=== PATIENT | female | born 1960 | race Caucasian/White ===

== ENCOUNTER → 2017-02-14 | Outpatient (CLI) | payer BC ==
[2017-02-14 14:27] LABS: BILIRUBIN,TOTAL 0.3 MG/DL (0.2-1.0); CARBON DIOXIDE LEVEL 27 MEQ/L (21-32); CHOLESTEROL LEVEL 324 MG/DL (<200)
[2017-02-14 14:28] LABS: ALBUMIN 3.4 GM/DL (3.2-5.2); ALBUMIN/GLOBULIN RATIO 0.94 (1.00-1.93); ALKALINE PHOSPHATASE 83 U/L (45-117); ALT/SGPT 62 U/L (12-78); ANION GAP 9 MEQ/L (8-16); AST/SGOT 29 U/L (15-37); BLOOD UREA NITROGEN 13 MG/DL (7-18); CALCIUM LEVEL 9.2 MG/DL (8.5-10.1); CHLORIDE LEVEL 108 MEQ/L (98-107); CREATININE FOR GFR 0.55 MG/DL (0.55-1.02); FREE T4 0.68 NG/DL (0.76-1.46); GLOMERULAR FILTRATION RATE > 60.0 (>51); GLUCOSE, FASTING 88 MG/DL (70-105); MEAN CORPUSCULAR HEMOGLOBIN 31.1 pg (27.0-33.0); MEAN CORPUSCULAR HGB CONC 33.3 g/dl (32.0-36.5); MEAN CORPUSCULAR VOLUME 93.4 fl (80.0-96.0); RED CELL DISTRIBUTION WIDTH 13.5 % (11.5-14.5); SODIUM LEVEL 144 MEQ/L (136-145); THYROXINE (T4) 2.9 UG/DL (4.5-12.0); TRIGLYCERIDES LEVEL 88 MG/DL (<150); WHITE BLOOD COUNT 5.5 K/mm3 (4.0-10.0)
[2017-02-15 08:41] LABS: THYROID PEROXIDASE ANTIBODY < 28.0 U/ML (<60.0)
[2017-02-20 00:06] LABS: IODINE LEVEL 25.2 ug/L (40.0-92.0)
== END ==
LOC: M WUC 10:13
PROVIDERS: ATTEND Nurse Practitioner Adult Health
DX: E03.9 Hypothyroidism, unspecified (principal); E27.49 Other adrenocortical insufficiency; E78.4 Other hyperlipidemia; E55.9 Vitamin D deficiency, unspecified

== ENCOUNTER → 2017-04-24 | Outpatient (CLI) | payer BC ==
[2017-04-24 14:32] LABS: FREE T4 0.69 NG/DL (0.76-1.46); THYROXINE (T4) 3.7 UG/DL (4.5-12.0)
== END ==
LOC: M WUC 10:11
PROVIDERS: ATTEND Nurse Practitioner Adult Health
DX: E03.9 Hypothyroidism, unspecified (principal)

== ENCOUNTER → 2018-05-14 | Outpatient (CLI) | payer BC ==
[2018-05-14 10:29] LABS: FREE T3 2.8 PG/ML (2.2-4.0); FREE T4 0.63 NG/DL (0.76-1.46); THYROID STIMULATING HORMONE 0.384 uIU/ML (0.358-3.740)
[2018-05-14 10:29] LABS: THYROXINE (T4) 3.9 UG/DL (4.5-12.0)
[2018-05-14 10:39] LABS: TOTAL T3 80.2 NG/DL (60.0-181.0)
[2018-05-18 00:07] LABS: IODINE LEVEL 96.4 ug/L (40.0-92.0); PREGNENOLONE 17 OH LEVEL 30 ng/dL (.)
== END ==
LOC: M WUC 08:36
DX: E03.9 Hypothyroidism, unspecified (principal); R53.83 Other fatigue; E27.49 Other adrenocortical insufficiency
CPT/HCPCS: 84443

== ENCOUNTER → 2019-07-06 | Outpatient (CLI) | payer BC ==
[2019-07-06 13:17] LABS: FREE T3 2.4 PG/ML (2.2-4.0); FREE T4 0.52 NG/DL (0.76-1.46); THYROID STIMULATING HORMONE 0.302 uIU/ML (0.358-3.740); THYROXINE (T4) 3.3 UG/DL (4.5-12.0)
[2019-07-06 13:25] LABS: TOTAL T3 57.6 NG/DL (60.0-181.0)
[2019-07-13 00:06] LABS: IODINE LEVEL 23.7 ug/L (40.0-92.0); T3 REVERSE 6.2 ng/dL (9.2-24.1)
== END ==
LOC: M WUC 10:41
PROVIDERS: ATTEND Nurse Practitioner Adult Health
DX: E03.9 Hypothyroidism, unspecified (principal); R53.83 Other fatigue; E27.49 Other adrenocortical insufficiency

== ENCOUNTER → 2019-10-12 | Outpatient (CLI) | payer BC ==
[2019-10-12 13:30] LABS: FREE T3 2.8 PG/ML (2.2-4.0); FREE T4 0.76 NG/DL (0.76-1.46); THYROID STIMULATING HORMONE 0.035 uIU/ML (0.358-3.740)
== END ==
LOC: M WUC 10:30
PROVIDERS: ATTEND Nurse Practitioner Adult Health
DX: E03.9 Hypothyroidism, unspecified (principal); E27.49 Other adrenocortical insufficiency
CPT/HCPCS: 36415; 82190; 84439; 84443; 84481; 84482; G0480